=== PATIENT | female | born 1950 | race Caucasian/White ===

== ENCOUNTER 2018-01-02 19:48 | Inpatient (IN) ==
[2018-01-02 21:02] LABS: Basophils % 0.2 % (0.0-0.8); Eosinophils % 0.1 % (0.00-10.9); Hematocrit 38.7 VOL% (35.7-47.0); Hemoglobin 12.6 GM/DL (12.0-16.0); Immature Granulocytes % 1.4 %; Immature Granulocytes Absolute 0.13 #; Lymphocytes # 1.1 10*3/uL (1.4-4.0); Lymphocytes % 11.7 % (21.3-54.2); Mean Corpuscular HGB Conc 32.6 GM/DL (32-36); Mean Corpuscular Hemoglobin 31 PG (27-34); Mean Corpuscular Volume 95.8 FL (87-102); Mean Platelet Volume 11.5 FL (9.6-12.0); Monocytes # 0.1 10*3/uL (0.11-0.8); Monocytes % 1.4 % (1.7-12.7); Neutrophils # 7.7 10*3/uL (1.4-7.4); Neutrophils % 85.2 % (38.7-73.9); Platelet Count 259 T/CUMM (130-400); Red Blood Count 4.04 MC/CUMM (3.8-5.5); Red Cell Distribution Width 13.9 % (9.3-17.3); White Blood Count 9.1 T/CUMM (4-12)
[2018-01-02 21:24] LABS: Alanine Aminotransferase 25 U/L (13-56); Albumin 3.5 G/DL (3.4-5.0); Alkaline Phosphatase 116 U/L (45-117); Aspartate Amino Transferase 14 U/L (0-37); Bilirubin,Total < 0.39 MG/DL (0.2-1.0); Blood Urea Nitrogen 9 MG/DL (7-18); Calcium 11.2 MG/DL (8.5-10.1); Glucose 164 MG/DL (74-106); Osmolality,Calculated 281.4 MOS/KG (273-304); Potassium 3.9 MMOL/L (3.5-5.1); Sodium 140 MMOL/L (136-145); Total Protein 7.7 G/DL (6.4-8.3)
[2018-01-02 21:25] LABS: Troponin I Only 0.373 NG/ML (0.00-0.045)
[2018-01-02] MEDS ORDERED: cefTRIAXone 1,000 MG in SODIUM CHLORIDE 0.9% 100 ML IV STA (21:40)
[2018-01-02] MEDS ORDERED: AZITHROMYCIN 250 MG TABLET PO STA (21:40)
[2018-01-02] MEDS ORDERED: ONDANSETRON 4 MG/2 ML VIAL IV PRN (22:26)
[2018-01-02] MEDS ORDERED: ACETAMINOPHEN 325 MG TABLET PO PRN (22:26)
[2018-01-02] MEDS ORDERED: PROPOFOL 1,000 MG/100 ML BOTTLE IV ONE (22:36)
[2018-01-02] MEDS ORDERED: VANCOMYCIN 1,000 MG VIAL ONE (22:38)
[2018-01-02] MEDS ORDERED: ROCURONIUM 100 MG/10 ML VIAL IV ONE (22:38)
[2018-01-02] MEDS ORDERED: ETOMIDATE 20 MG/10 ML VIAL IV ONE (22:38)
[2018-01-02] MEDS ORDERED: CEFEPIME 2,000 MG VIAL ONE (22:38)
[2018-01-02] MEDS ORDERED: SODIUM CHLORIDE 0.9% 100 ML IV ONE (22:38)
[2018-01-02] MEDS ORDERED: AZITHROMYCIN INJ 250 MG in SODIUM CHLORIDE 0.9% 250 ML IV SCH (23:00)
[2018-01-02] MEDS ORDERED: cefTRIAXone 1,000 MG VIAL IM SCH (23:00)
[2018-01-02] MEDS: ALBUTEROL/IPRATROPIUM 3 ML NEB RESP TX SCH (23:06)
[2018-01-02] MEDS ORDERED: hydrALAZINE 25 MG TABLET PO SCH (23:45)
[2018-01-02] MEDS ORDERED: cefTRIAXone 1,000 MG VIAL ONE (23:46)
[2018-01-02] MEDS ORDERED: FUROSEMIDE 40 MG/4 ML VIAL ONE (23:46)
[2018-01-02] MEDS ORDERED: AZITHROMYCIN 250 MG TABLET ONE (23:47)
[2018-01-02] MEDS ORDERED: COLCHICINE 0.6 MG TABLET PO PRN (23:58)
[2018-01-03] MEDS: FUROSEMIDE 40 MG/4 ML VIAL IV SCH ×3 (00:27→15:47)
[2018-01-03] MEDS: CARVEDILOL 25 MG TABLET PO SCH ×3 (00:38→20:53)
[2018-01-03] MEDS: LEVOFLOXACIN INJ 750 MG in PREMIX 1 EACH IV SCH (01:30)
[2018-01-03] MEDS: ALBUTEROL/IPRATROPIUM 3 ML NEB RESP TX SCH ×5 (02:42→20:36)
[2018-01-03 05:13] LABS: Basophils % 0.1 % (0.0-0.8); Hematocrit 38.4 VOL% (35.7-47.0); Hemoglobin 12.3 GM/DL (12.0-16.0); Immature Granulocytes % 0.5 %; Immature Granulocytes Absolute 0.05 #; Lymphocytes # 1.5 10*3/uL (1.4-4.0); Lymphocytes % 13.7 % (21.3-54.2); Mean Corpuscular Hemoglobin 30 PG (27-34); Mean Platelet Volume 11.7 FL (9.6-12.0); Monocytes # 0.4 10*3/uL (0.11-0.8); Neutrophils # 8.9 10*3/uL (1.4-7.4); Neutrophils % 81.7 % (38.7-73.9); Platelet Count 265 T/CUMM (130-400); Red Blood Count 4.04 MC/CUMM (3.8-5.5); Red Cell Distribution Width 13.5 % (9.3-17.3); White Blood Count 10.9 T/CUMM (4-12)
[2018-01-03 05:58] LABS: Calcium 11.4 MG/DL (8.5-10.1); Osmolality,Calculated 276.5 MOS/KG (273-304); Potassium 4.1 MMOL/L (3.5-5.1)
[2018-01-03] MEDS: PANTOPRAZOLE 40 MG TABLET PO SCH (08:12)
[2018-01-03] MEDS: FLUTICASONE 50 MCG NASAL SPRAY 16 GM BOTTLE BOTH NARES SCH (08:13)
[2018-01-03] MEDS ORDERED: VALSARTAN 160 MG TABLET PO SCH (09:00)
[2018-01-03] MEDS ORDERED: GLUCAGON 1 MG VIAL IM PRN (09:35)
[2018-01-03] MEDS ORDERED: DEXTROSE 50% 25 GM/50 ML VIAL IV PRN (09:35)
[2018-01-03] MEDS ORDERED: CLOPIDOGREL 300 MG TABLET PO ONE (09:40)
[2018-01-03] MEDS: amLODIPine 10 MG TABLET PO SCH (10:38)
[2018-01-03] MEDS: VALSARTAN 160 MG TABLET PO SCH (20:52)
[2018-01-03] MEDS: ROSUVASTATIN 10 MG TABLET PO SCH (20:52)
[2018-01-03] MEDS: ASPIRIN EC 81 MG TABLET PO SCH (20:53)
[2018-01-03] MEDS ORDERED: CHLORTHALIDONE 50 MG TABLET PO SCH (22:50)
[2018-01-03] MEDS ORDERED: cefTRIAXone 1,000 MG VIAL IM SCH (23:00)
[2018-01-04] MEDS: ALBUTEROL/IPRATROPIUM 3 ML NEB RESP TX SCH ×6 (00:38→19:16)
[2018-01-04] MEDS: CHLORTHALIDONE 25 MG TABLET PO SCH ×2 (01:32→08:46)
[2018-01-04] MEDS: LEVOFLOXACIN INJ 750 MG in PREMIX 1 EACH IV SCH ×2 (01:39→22:57)
[2018-01-04] MEDS ORDERED: hydrALAZINE 20 MG/1 ML VIAL IV ONE (04:00)
[2018-01-04 04:01] LABS: Basophils % 0.1 % (0.0-0.8); Eosinophils % 0.3 % (0.00-10.9); Hematocrit 38.1 VOL% (35.7-47.0); Immature Granulocytes % 0.4 %; Immature Granulocytes Absolute 0.05 #; Lymphocytes # 3.1 10*3/uL (1.4-4.0); Lymphocytes % 21.6 % (21.3-54.2); Mean Corpuscular HGB Conc 34.1 GM/DL (32-36); Mean Corpuscular Hemoglobin 31 PG (27-34); Mean Platelet Volume 12.1 FL (9.6-12.0); Monocytes # 1.1 10*3/uL (0.11-0.8); Neutrophils # 9.9 10*3/uL (1.4-7.4); Neutrophils % 69.6 % (38.7-73.9); Platelet Count 277 T/CUMM (130-400); Red Blood Count 4.14 MC/CUMM (3.8-5.5); Red Cell Distribution Width 13.9 % (9.3-17.3); White Blood Count 14.2 T/CUMM (4-12)
[2018-01-04 04:30] LABS: Calcium 11.1 MG/DL (8.5-10.1); Osmolality,Calculated 280.4 MOS/KG (273-304); Potassium 3.8 MMOL/L (3.5-5.1)
[2018-01-04] MEDS ORDERED: hydrALAZINE 20 MG/1 ML VIAL IV PRN (05:05)
[2018-01-04] MEDS ORDERED: ENALAPRIL 2.5 MG/2 ML VIAL IV ONE (05:30)
[2018-01-04] MEDS: FUROSEMIDE 40 MG/4 ML VIAL IV SCH (08:46)
[2018-01-04] MEDS: amLODIPine 10 MG TABLET PO SCH (08:47)
[2018-01-04] MEDS: VALSARTAN 160 MG TABLET PO SCH ×2 (08:47→20:51)
[2018-01-04] MEDS: CARVEDILOL 25 MG TABLET PO SCH ×2 (08:47→20:51)
[2018-01-04] MEDS: CLOPIDOGREL 75 MG TABLET PO SCH (08:47)
[2018-01-04] MEDS: PANTOPRAZOLE 40 MG TABLET PO SCH (08:48)
[2018-01-04] MEDS: FLUTICASONE 50 MCG NASAL SPRAY 16 GM BOTTLE BOTH NARES SCH (08:48)
[2018-01-04] MEDS: FUROSEMIDE 40 MG TABLET PO SCH (15:35)
[2018-01-04] MEDS: ROSUVASTATIN 10 MG TABLET PO SCH (20:49)
[2018-01-04] MEDS: ASPIRIN EC 81 MG TABLET PO SCH (20:50)
[2018-01-05] MEDS: ALBUTEROL/IPRATROPIUM 3 ML NEB RESP TX SCH ×4 (00:25→10:28)
[2018-01-05] MEDS ORDERED: POLYETHYLENE GLYCOL POWDER 17 GM PACK PO PRN (07:42)
[2018-01-05] MEDS: CARVEDILOL 25 MG TABLET PO SCH (08:07)
[2018-01-05] MEDS: PANTOPRAZOLE 40 MG TABLET PO SCH (08:07)
[2018-01-05] MEDS: CLOPIDOGREL 75 MG TABLET PO SCH (08:07)
[2018-01-05] MEDS: amLODIPine 10 MG TABLET PO SCH (08:07)
[2018-01-05] MEDS: FUROSEMIDE 40 MG TABLET PO SCH (08:08)
[2018-01-05] MEDS: VALSARTAN 160 MG TABLET PO SCH (08:08)
[2018-01-05] MEDS: FLUTICASONE 50 MCG NASAL SPRAY 16 GM BOTTLE BOTH NARES SCH (08:20)
[2018-01-05] MEDS ORDERED: DOCUSATE SODIUM 100 MG CAPSULE PO SCH (09:00)
[2018-01-05 12:07] VITALS: BP 103/62
== END 2018-01-05 14:15 | disposition home or self-care (01) | DRG 304 ==
LOC: N.ED 19:48 → N.EDINP 22:26 → N.CC 01-03 00:24 → N.TELES 01-03 23:23
PROVIDERS: ADMIT Hospitalist; ATTEND Hospitalist

== ENCOUNTER 2022-08-10 18:30 | Inpatient (IN) ==
[2022-08-10] MEDS ORDERED: MORPHINE 2 MG/1 ML SYRINGE IV STA (18:54)
[2022-08-10] MEDS ORDERED: ASPIRIN 325 MG TABLET PO STA (18:54)
[2022-08-10] MEDS ORDERED: FUROSEMIDE 100 MG/10 ML VIAL IV STA (18:54)
[2022-08-10] MEDS ORDERED: NITROGLYCERIN 2% OINT 1 INCH/GM PACK TOP STA (18:54)
[2022-08-10] MEDS ORDERED: ALBUTEROL/IPRATROPIUM 3 ML NEB RESP TX STA (18:54)
[2022-08-10] MEDS ORDERED: ONDANSETRON 4 MG/2 ML VIAL IV STA (18:54)
[2022-08-10 19:03] LABS: Basophils % 0.4 % (0.0-0.8); Eosinophils # 0.7 10*3/uL (0.0-0.87); Eosinophils % 8.2 % (0.00-10.9); Hematocrit 33.7 VOL% (35.7-47.0); Hemoglobin 10.7 GM/DL (12.0-16.0); Immature Granulocytes % 0.4 %; Immature Granulocytes Absolute 0.03 #; Lymphocytes % 24.6 % (21.3-54.2); Mean Corpuscular HGB Conc 31.8 GM/DL (32-36); Mean Corpuscular Volume 95.5 FL (87-102); Mean Platelet Volume 10.4 FL (9.6-12.0); Monocytes # 0.7 10*3/uL (0.11-0.8); Monocytes % 8.4 % (1.7-12.7); Platelet Count 286 T/CUMM (130-400); Red Blood Count 3.53 MC/CUMM (3.8-5.5); Red Cell Distribution Width 14.7 % (9.3-17.3); White Blood Count 8.2 T/CUMM (4-12)
[2022-08-10 19:15] LABS: Albumin 3.4 G/DL (3.4-5.0); Bilirubin,Total 0.4 MG/DL (0.20-1.00); Calcium 8.6 MG/DL (8.5-10.1); Potassium 3.8 MMOL/L (3.5-5.1); Total Protein 7.3 G/DL (6.4-8.2)
[2022-08-10 19:25] LABS: PT Patient Result 10.9 SECS (10.1-12.1)
[2022-08-10] MEDS ORDERED: hydrALAZINE 20 MG/1 ML VIAL IV STA (19:39)
[2022-08-10] MEDS ORDERED: ONDANSETRON 4 MG/2 ML VIAL IV PRN (20:12)
[2022-08-10] MEDS ORDERED: NITROGLYCERIN SL 0.4 MG TABLET SL PRN (20:39)
[2022-08-10] MEDS ORDERED: hydrALAZINE 20 MG/1 ML VIAL IV PRN (20:40)
[2022-08-11] MEDS: ENOXAPARIN 40 MG/0.4 ML SYRINGE SUBCUT SCH ×2 (00:46→21:17)
[2022-08-11 03:13] LABS: Basophils % 0.3 % (0.0-0.8); Eosinophils # 0.6 10*3/uL (0.0-0.87); Eosinophils % 7.9 % (0.00-10.9); Hematocrit 32.4 VOL% (35.7-47.0); Hemoglobin 10.1 GM/DL (12.0-16.0); Immature Granulocytes % 0.3 %; Immature Granulocytes Absolute 0.02 #; Lymphocytes # 2.2 10*3/uL (1.4-4.0); Lymphocytes % 28.6 % (21.3-54.2); Mean Corpuscular HGB Conc 31.2 GM/DL (32-36); Mean Corpuscular Volume 96.7 FL (87-102); Mean Platelet Volume 10.2 FL (9.6-12.0); Monocytes # 0.8 10*3/uL (0.11-0.8); Monocytes % 9.8 % (1.7-12.7); Neutrophils % 53.1 % (38.7-73.9); Platelet Count 273 T/CUMM (130-400); Red Blood Count 3.35 MC/CUMM (3.8-5.5); Red Cell Distribution Width 14.7 % (9.3-17.3); White Blood Count 7.8 T/CUMM (4-12)
[2022-08-11 03:40] LABS: Calcium 8.8 MG/DL (8.5-10.1); Potassium 3.4 MMOL/L (3.5-5.1); Risk Ratio 2.75; Thyroid Stimulating Hormone 1.71 uIU/ml (0.358-3.74); VLDL Cholesterol 10.2 MG/DL
[2022-08-11] MEDS: OLMESARTAN 20 MG TABLET PO SCH (08:53)
[2022-08-11] MEDS: ISOSORBIDE MONONITRATE 30 MG TABLET PO SCH (08:54)
[2022-08-11] MEDS: ROSUVASTATIN 20 MG TABLET PO SCH (08:54)
[2022-08-11] MEDS: NEBIVOLOL 10 MG TABLET PO SCH (08:55)
[2022-08-11] MEDS ORDERED: CETIRIZINE 10 MG TABLET PO SCH (09:00)
[2022-08-11] MEDS: FUROSEMIDE 40 MG/4 ML VIAL IV SCH (10:10)
[2022-08-11] MEDS: PANTOPRAZOLE 40 MG TABLET PO SCH (10:13)
[2022-08-11] MEDS ORDERED: POTASSIUM CHLORIDE 20 MEQ TABLET PO PRN (13:50)
[2022-08-11] MEDS: ASPIRIN EC 81 MG TABLET PO SCH (21:17)
[2022-08-12 06:08] LABS: Basophils % 0.2 % (0.0-0.8); Eosinophils # 0.7 10*3/uL (0.0-0.87); Eosinophils % 7.6 % (0.00-10.9); Hematocrit 33.6 VOL% (35.7-47.0); Hemoglobin 10.5 GM/DL (12.0-16.0); Immature Granulocytes % 0.2 %; Immature Granulocytes Absolute 0.02 #; Lymphocytes # 2.6 10*3/uL (1.4-4.0); Lymphocytes % 29.1 % (21.3-54.2); Mean Corpuscular HGB Conc 31.3 GM/DL (32-36); Mean Corpuscular Volume 97.7 FL (87-102); Mean Platelet Volume 10.6 FL (9.6-12.0); Monocytes # 0.9 10*3/uL (0.11-0.8); Monocytes % 9.9 % (1.7-12.7); Platelet Count 276 T/CUMM (130-400); Red Blood Count 3.44 MC/CUMM (3.8-5.5); Red Cell Distribution Width 14.4 % (9.3-17.3); White Blood Count 8.9 T/CUMM (4-12)
[2022-08-12 06:44] LABS: Calcium 8.8 MG/DL (8.5-10.1); Potassium 3.8 MMOL/L (3.5-5.1)
[2022-08-12] MEDS: ROSUVASTATIN 20 MG TABLET PO SCH (08:53)
[2022-08-12] MEDS: OLMESARTAN 20 MG TABLET PO SCH (08:53)
[2022-08-12] MEDS: NEBIVOLOL 10 MG TABLET PO SCH (08:54)
[2022-08-12] MEDS: ISOSORBIDE MONONITRATE 30 MG TABLET PO SCH (08:54)
[2022-08-12] MEDS: PANTOPRAZOLE 40 MG TABLET PO SCH (08:54)
[2022-08-12] MEDS: FUROSEMIDE 40 MG/4 ML VIAL IV SCH (11:26)
[2022-08-12] MEDS: CLOPIDOGREL 75 MG TABLET PO SCH (13:57)
[2022-08-12] MEDS: ASPIRIN EC 81 MG TABLET PO SCH (21:07)
[2022-08-12] MEDS: ENOXAPARIN 40 MG/0.4 ML SYRINGE SUBCUT SCH (21:08)
[2022-08-13 06:13] LABS: Basophils % 0.2 % (0.0-0.8); Eosinophils # 0.7 10*3/uL (0.0-0.87); Eosinophils % 8.2 % (0.00-10.9); Hematocrit 33.3 VOL% (35.7-47.0); Hemoglobin 10.5 GM/DL (12.0-16.0); Immature Granulocytes % 0.4 %; Immature Granulocytes Absolute 0.03 #; Lymphocytes # 2.1 10*3/uL (1.4-4.0); Mean Corpuscular HGB Conc 31.5 GM/DL (32-36); Mean Corpuscular Volume 96.8 FL (87-102); Mean Platelet Volume 10.4 FL (9.6-12.0); Monocytes # 0.7 10*3/uL (0.11-0.8); Monocytes % 9.2 % (1.7-12.7); Platelet Count 283 T/CUMM (130-400); Red Blood Count 3.44 MC/CUMM (3.8-5.5); Red Cell Distribution Width 14.4 % (9.3-17.3)
[2022-08-13 06:51] LABS: Osmolality,Calculated 269.2 MOS/KG (273-304); Potassium 3.7 MMOL/L (3.5-5.1)
[2022-08-13] MEDS: ROSUVASTATIN 20 MG TABLET PO SCH (09:26)
[2022-08-13] MEDS: FUROSEMIDE 40 MG/4 ML VIAL IV SCH ×2 (09:26→15:54)
[2022-08-13] MEDS: ISOSORBIDE MONONITRATE 30 MG TABLET PO SCH (09:26)
[2022-08-13] MEDS: CLOPIDOGREL 75 MG TABLET PO SCH (09:27)
[2022-08-13] MEDS: OLMESARTAN 20 MG TABLET PO SCH (09:27)
[2022-08-13] MEDS: PANTOPRAZOLE 40 MG TABLET PO SCH (09:27)
[2022-08-13] MEDS: NEBIVOLOL 10 MG TABLET PO SCH (09:33)
[2022-08-13] MEDS: ENOXAPARIN 40 MG/0.4 ML SYRINGE SUBCUT SCH (21:34)
[2022-08-13] MEDS: ASPIRIN EC 81 MG TABLET PO SCH (21:34)
[2022-08-14 04:24] LABS: Basophils % 0.5 % (0.0-0.8); Eosinophils # 0.7 10*3/uL (0.0-0.87); Eosinophils % 8.8 % (0.00-10.9); Hematocrit 33.3 VOL% (35.7-47.0); Hemoglobin 10.6 GM/DL (12.0-16.0); Immature Granulocytes % 0.2 %; Immature Granulocytes Absolute 0.02 #; Lymphocytes # 2.1 10*3/uL (1.4-4.0); Lymphocytes % 25.2 % (21.3-54.2); Mean Corpuscular HGB Conc 31.8 GM/DL (32-36); Mean Corpuscular Volume 96.2 FL (87-102); Mean Platelet Volume 10.8 FL (9.6-12.0); Monocytes # 0.8 10*3/uL (0.11-0.8); Monocytes % 10.1 % (1.7-12.7); Neutrophils % 55.2 % (38.7-73.9); Platelet Count 268 T/CUMM (130-400); Red Blood Count 3.46 MC/CUMM (3.8-5.5); Red Cell Distribution Width 14.3 % (9.3-17.3); White Blood Count 8.3 T/CUMM (4-12)
[2022-08-14 04:50] LABS: Albumin 3.5 G/DL (3.4-5.0); Bilirubin,Total 0.5 MG/DL (0.20-1.00); Calcium 9.1 MG/DL (8.5-10.1); Potassium 3.7 MMOL/L (3.5-5.1); Total Protein 7.4 G/DL (6.4-8.2)
[2022-08-14] MEDS: FUROSEMIDE 40 MG/4 ML VIAL IV SCH (07:15)
[2022-08-14 08:13] VITALS: BP 137/71
[2022-08-14] MEDS: OLMESARTAN 20 MG TABLET PO SCH (09:38)
[2022-08-14] MEDS: ROSUVASTATIN 20 MG TABLET PO SCH (09:38)
[2022-08-14] MEDS: CLOPIDOGREL 75 MG TABLET PO SCH (09:38)
[2022-08-14] MEDS: ISOSORBIDE MONONITRATE 30 MG TABLET PO SCH (09:39)
[2022-08-14] MEDS: PANTOPRAZOLE 40 MG TABLET PO SCH (09:39)
[2022-08-14] MEDS: NEBIVOLOL 10 MG TABLET PO SCH (09:40)
== END 2022-08-14 12:07 | disposition home or self-care (01) | DRG 194 ==
LOC: EDBD → EDUNIT# → N.ED 18:30 → N.EDINP 18:30 → SUATTDRO 20:12 → N.TELES 23:35
PROVIDERS: ADMIT Phlebology; ATTEND Internal Medicine Cardiovascular Disease